=== PATIENT | female | born 1940 | race Caucasian/White ===

== ENCOUNTER 2017-11-11 13:18 | Inpatient (IN) | payer SELFPAY ==
[~2017-11-11] VITALS: Ht 152.4 cm; Wt 29.7 kg
[~2017-11-11 13:18] MED LIST: COLACE100 MG PO; FERROUS SULFAT325 M2 PO; GOOD SENSE ASPI81 M3 PO; LEVEMIR100 U/M1 SQ; METOPROLOL TART25 M1 PO; PRI20 PO; THERAGRAN-M1 TA4 PO; ZES10 PO; ZOC10 PO
[2017-11-11 14:31] LABS: PLATELET COUNT 186 x10^3mcL (130-400)
[2017-11-11 14:32] LABS: BASOPHIL % 0 % (0-2)
[2017-11-11 14:44] LABS: CALCIUM 7.7 mg/dL (8.5-10.1); CARBON DIOXIDE 22.9 mmol/L (21-32); CHLORIDE SERUM 98 mmol/L (98-107); CREATININE SERUM 1.9 mg/dL (0.6-1.0); GLUCOSE SERUM 92 mg/dL (74-106); POTASSIUM SERUM 4.8 mmol/L (3.5-5.1); SODIUM SERUM 130 mmol/L (136-145)
[2017-11-11 14:56] LABS: ALKALINE PHOSPHATASE 71 U/L (46-116); ALT/SGPT 24 U/L (14-59); AMYLASE 83 U/L (25-115); AST/SGOT 43 U/L (15-37); BILIRUBIN TOTAL 0.1 mg/dL (0.20-1.00); HDL CHOLESTEROL 55 mg/dL (40-60); LIPASE 151 IU/L (73-393); T4(THYROXINE) 4.9 ug/dL (4.7-13.3)
[2017-11-11 15:12] LABS: ALBUMIN 2.7 g/dL (3.4-5.0); CHOLESTEROL 124 mg/dL (<200); TOTAL PROTEIN, SERUM 9.2 g/dL (6.4-8.2)
[2017-11-11 15:44] LABS: UA SPECIFIC GRAVITY 1.025 (1.005-1.035); microscopic required? YES; urine erythrocyte 1+ (NEGATIVE)
[2017-11-11 17:24] LABS: MAGNESIUM 1.4 mg/dL (1.8-2.4); PHOSPHOROUS 4.5 mg/dL (2.5-4.9)
[2017-11-11 18:24] VITALS: BP 128/43
[2017-11-11 19:07] LABS: AMPHETAMINE QUAL UR NONE DETECTED (NEG <=1000)
[2017-11-11 21:33] VITALS: BP 126/53
[2017-11-11] MEDS ORDERED: LANTUS SOLOS100 U/M1 SQ (22:00)
[2017-11-11 22:10] LABS: CALCIUM 7.5 mg/dL (8.5-10.1); CARBON DIOXIDE 18.6 mmol/L (21-32); CHLORIDE SERUM 102 mmol/L (98-107); CHOLESTEROL 118 mg/dL (<200); CHOLESTEROL/HDL RATIO 2.3; CREATININE SERUM 1.9 mg/dL (0.6-1.0); GLUCOSE SERUM 202 mg/dL (74-106); HDL CHOLESTEROL 52 mg/dL (40-60); POTASSIUM SERUM 4.6 mmol/L (3.5-5.1); SODIUM SERUM 133 mmol/L (136-145); TRIGLYCERIDES 33 mg/dL (<150)
[2017-11-12 06:51] VITALS: BP 125/35
[2017-11-12 07:51] LABS: BASOPHIL % 0.2 % (0-2); PLATELET COUNT 151 x10^3mcL (130-400)
[2017-11-12 07:58] LABS: RED CELL DISTRIBUTION WIDTH 15.1 % (11.5-14.5)
[2017-11-12 08:13] LABS: CALCIUM 7.9 mg/dL (8.5-10.1); CARBON DIOXIDE 17.1 mmol/L (21-32); CHLORIDE SERUM 103 mmol/L (98-107); CREATININE SERUM 1.8 mg/dL (0.6-1.0); GLUCOSE SERUM 144 mg/dL (74-106); PHOSPHOROUS 5.2 mg/dL (2.5-4.9); POTASSIUM SERUM 4.9 mmol/L (3.5-5.1); SODIUM SERUM 134 mmol/L (136-145)
[2017-11-12 08:14] LABS: MAGNESIUM 3.8 mg/dL (1.8-2.4)
[2017-11-12 10:00] VITALS: BP 132/55
[2017-11-12 13:50] VITALS: BP 97/49
[2017-11-12 17:47] VITALS: BP 144/57
[2017-11-12 21:19] VITALS: BP 106/64
[2017-11-13 05:07] VITALS: BP 159/49
[2017-11-13 07:34] LABS: BASOPHIL % 0.1 % (0-2); PLATELET COUNT 184 x10^3mcL (130-400)
[2017-11-13 07:39] LABS: RED CELL DISTRIBUTION WIDTH 15.9 % (11.5-14.5)
[2017-11-13 08:06] LABS: CALCIUM 7.6 mg/dL (8.5-10.1); CARBON DIOXIDE 20.8 mmol/L (21-32); CHLORIDE SERUM 102 mmol/L (98-107); CREATININE SERUM 1.7 mg/dL (0.6-1.0); GLUCOSE SERUM 106 mg/dL (74-106); MAGNESIUM 2.7 mg/dL (1.8-2.4); PHOSPHOROUS 3.6 mg/dL (2.5-4.9); POTASSIUM SERUM 4.4 mmol/L (3.5-5.1); SODIUM SERUM 132 mmol/L (136-145)
[2017-11-13 09:37] VITALS: BP 149/57
[2017-11-13 13:30] VITALS: BP 138/49
[2017-11-13 13:48] LABS: TOTAL IRON BINDING CAPACITY 251 ug/dL (250-450)
[2017-11-13 13:53] LABS: IRON 33 ug/dL (50-170)
[2017-11-13 17:15] VITALS: BP 123/44
[2017-11-13 21:19] VITALS: BP 143/55
[2017-11-14 05:27] VITALS: BP 142/55
[2017-11-14 07:25] LABS: CALCIUM 7.5 mg/dL (8.5-10.1); CARBON DIOXIDE 19.2 mmol/L (21-32); CHLORIDE SERUM 101 mmol/L (98-107); CREATININE SERUM 1.8 mg/dL (0.6-1.0); GLUCOSE SERUM 106 mg/dL (74-106); MAGNESIUM 2.1 mg/dL (1.8-2.4); PHOSPHOROUS 2.6 mg/dL (2.5-4.9); POTASSIUM SERUM 4.6 mmol/L (3.5-5.1); SODIUM SERUM 131 mmol/L (136-145)
[2017-11-14 07:49] LABS: PLATELET COUNT 153 x10^3mcL (130-400)
[2017-11-14 07:50] LABS: BASOPHIL % 0 % (0-2); RED CELL DISTRIBUTION WIDTH 15.4 % (11.5-14.5)
[2017-11-14 10:24] VITALS: BP 141/49
[2017-11-14 12:08] VITALS: BP 149/61
[2017-11-14] MEDS ORDERED: LEVAQUIN750 MG PO (12:10)
[2017-11-14] MEDS ORDERED: CLINDAMYCIN HC300 MG PO (12:11)
[2017-11-14] MEDS ORDERED: LIPI20 PO (12:12)
[2017-11-14] MEDS ORDERED: CLOPIDOGREL75 M1 PO (12:12)
[2017-11-14] MEDS ORDERED: ECO81 PO (12:13)
[2017-11-14] MEDS ORDERED: METOPROLOL TART25 M1 PO (12:13)
[2017-11-14] MEDS ORDERED: PRI20 PO (12:14)
[2017-11-14] MEDS ORDERED: BG FS (12:14)
[2017-11-14] MEDS ORDERED: REG5 PO (12:15)
[2017-11-14] MEDS ORDERED: EASY COMFORT I1 EAC1 MC (12:16)
[2017-11-14] MEDS ORDERED: LAC PO (12:17)
[2017-11-14 13:00] VITALS: BP 149/61
== END 2017-11-14 15:02 | disposition home or self-care (01) | DRG 308 ==
LOC: ED 13:18 → DU 17:00
PROVIDERS: Emergency Medicine; Family Medicine; Student in an Organized Health Care Education/Training Program
DX: I44.7 Left bundle-branch block, unspecified (principal); E43 Unspecified severe protein-calorie malnutrition; N17.0 Acute kidney failure with tubular necrosis; E87.1 Hypo-osmolality and hyponatremia; Z98.42 Cataract extraction status, left eye; Z98.41 Cataract extraction status, right eye; J98.01 Acute bronchospasm; N18.3 Chronic kidney disease, stage 3 (moderate); E11.22 Type 2 diabetes mellitus with diabetic chronic kidney disease; H54.8 Legal blindness, as defined in USA; I44.30 Unspecified atrioventricular block; Z83.3 Family history of diabetes mellitus; E11.65 Type 2 diabetes mellitus with hyperglycemia; E83.51 Hypocalcemia; E83.42 Hypomagnesemia; E02 Subclinical iodine-deficiency hypothyroidism; D64.9 Anemia, unspecified
CPT/HCPCS: 82962; 83880; 87804; J1644; J1815; J1956; J2930; J3475; J3490; J7030; J7040; J7613; J7644; J8597; Q0092